=== PATIENT | male | born 1955 | race Caucasian/White ===

== ENCOUNTER → 2022-06-27 13:47 | Outpatient (BNVA) | payer MEDICARE, SELFPAY | PROVIDERS: PCP Nurse Practitioner Family; Visit Provider Internal Medicine Cardiovascular Disease | DX: I11.0 Hypertensive heart disease with heart failure (principal); I50.9 Heart failure, unspecified; I25.10 Atherosclerotic heart disease of native coronary artery without angina pectoris; E78.5 Hyperlipidemia, unspecified; F17.200 Nicotine dependence, unspecified, uncomplicated | CPT/HCPCS: 99214 ==

== ENCOUNTER → 2023-01-28 13:24 | Outpatient (BNVA) | payer MEDICARE, SELFPAY | PROVIDERS: PCP Nurse Practitioner Family; Visit Provider Nurse Practitioner Family | DX: I11.0 Hypertensive heart disease with heart failure (principal); I50.9 Heart failure, unspecified; I25.10 Atherosclerotic heart disease of native coronary artery without angina pectoris; F17.200 Nicotine dependence, unspecified, uncomplicated | CPT/HCPCS: 99214 ==

== ENCOUNTER 2023-05-11 14:32 | Emergency (ER) | payer MEDICARE, SELFPAY ==
[2023-05-11 14:44] VITALS: BP 155/87; PULSE 69; RESP 18; O2SAT 98
[2023-05-11] MEDS: dexamethasone 10 mg/mL INJ IVP (15:05)
[2023-05-11] MEDS: diphenhydrAMINE 50 mg/mL SDV 1mL IVP (15:05)
[2023-05-11] MEDS: famotidine 20 mg/2 mL INJ 40 MG IVP (15:05)
--- NOTE | 2023-05-11 15:06 | ED_ITS ---
HPI - General Adult General: Chief complaint: Airway/Esophagus Foreign Body Stated complaint: swollen tongue, Sob Time Seen by Provider: 05/11/23 14:47 History of Present Illness: Patient notices right tongue and right side of his neck swelling today started started about noon is getting worse. Patient is having a hard time talking.. It hurts to swallow. Patient's airway is patent with no difficulty breathing. He has never had this happen before. Patient is currently on lisinopril hydrochlorothiazide but has been on it for a long time. Relieving factors: none Exacerbating factors: none Review of Systems General: Reports: 10 or more systems reviewed and unremarkable except in HPI and below PFSH ED PFSH: Medical History ASHD (arteriosclerotic heart disease) CHF (congestive heart failure), NYHA class III GERD (gastroesophageal reflux disease) HTN (hypertension) Hyperlipidemia Surgical History S/P cholecystectomy S/P PTCA (percutaneous transluminal coronary angioplasty) S/P routine circumcision Social History Smoking and tobacco status: current every day smoker Physical Exam Const: COMMON NORMALS: no acute distress, average body habitus, patient oriented x3, no limitations, healthy appearing, alert and well nourished HENMT: COMMON NORMALS: normocephalic, atraumatic, hearing grossly normal bilaterally, external ears normal, Normal external nose present and moist oral mucous membranes HEAD & SCALP: normocephalic and atraumatic NOSE: Normal external nose present EXTERNAL EAR: Yes external ears normal OTHER: Right-sided tongue obviously swollen. Eye: COMMON NORMALS: Equal, round and reactive pupils present, EOMs intact bilaterally, conjunctivae normal and no scleral icterus CONJUNCTIVA: Yes conjunctivae normal PUPIL: Yes Equal, round and reactive pupils present Neck/C-Spine: COMMON NORMALS: no JVD OTHER: Right side of neck swollen up in the submandibular area tender to palpate. Left-sided neck normal. Lymph: LYMPHATIC: no lymphadenopathy noted Chest: COMMONS NORMALS: normal inspection of the chest and normal palpation of entire chest wall Resp: COMMON NORMALS: normal respiratory effort, No retractions and No use of accessory muscles Cardio: COMMON NORMALS: no JVD, regular rate, regular rhythm, S1 normal heart sound present, S2 normal heart sound present, No gallops present (Cardio), No clicks present (Cardio), No murmurs present (Cardio) and No rub (Cardio) RATE: regular rate RHYTHM: regular rhythm HEART SOUNDS: S1 normal heart sound present and S2 normal heart sound present GI: COMMON NORMALS: Normal to inspection, nondistended, normoactive bowel sounds present, Soft to palpation, non-tender, No hepatosplenomegaly present and no masses PALPATION: Yes Soft to palpation and Yes No hepatosplenomegaly present : COMMON NORMALS: Yes no CVA tenderness BLADDER/KIDNEY EXAM: Yes no CVA tenderness Back/Pelvis: COMMON NORMALS: no CVA tenderness Neuro: COMMON NORMALS: patient oriented x3 SENSORIUM/ORIENTATION: Yes alert Course Vital Signs: Vital signs: Vital Signs Pulse Rate 77 05/11/23 16:14 Respiratory Rate 21 H 05/11/23 16:14 Blood Pressure 139/83 05/11/23 16:14 Pulse Oximetry 96 05/11/23 16:14 Oxygen Delivery Me thod Room Air 05/11/23 16:14 MDM - General Adult Medical Decision Making Patient presents to the ER with right-sided tongue swelling and right-sided neck swelling. Patient was exposed to no known allergens. Patient states this happens couple times a year usually in the lips but never in the tongue. Patient was given a combination of Pepcid Benadryl and Decadron which did not seem to help patient was then given a dose of epinephrine which did seem to help. Patient was kept here for about another hour and a Improving. Patient feels comfortable and getting discharged home. Patient is to follow-up with his PCP in approximately 1 week as needed. Differential Diagnosis Angioedema, allergic reaction, anaphylaxis, Medical Records I reviewed the patient's medical records. Lab Data I reviewed the patient's lab results. Discharge Plan Discharge Patient Disposition: Home Clinical Impression: Tongue swelling Condition: Stable Prescriptions: No Action aspirin [Adult Low Dose Aspirin] 81 mg tablet,delayed release (DR/EC) 81 mg PO DAILY famotidine 20 mg tablet 20 mg PO DAILY carvedilol 12.5 mg tablet 12.5 mg PO BID Qty: 180 3RF amlodipine 5 mg tablet 5 mg PO DAILY Qty: 90 3RF lisinopril-hydrochlorothiazide 20-25 mg tablet 1 tab PO BID Qty: 180 1RF sildenafil 50 mg Tablet 50 mg PO DAILY PRN (Reason: Erectile Dysfunction) Rx Instructions: administer 30 minutes to 4 hours before activity pravastatin 10 mg tablet 10 mg PO DAILY Discharge Orders: Discharge ED (Routine); Ordered 05/11/23 Ordered By: Isaiah Machado Referrals: Estee Elizabeth FNP [Primary Care Provider] - 1 week Patient Instructions: Allergic Reaction Activity Restrictions/Additional Instructions: Please follow-up with your PCP in the next 7 to 10 days as further evaluation and treatment may be necessary. You may benefit from a referral from an help desk administrator. Please return to the ER if your signs or symptoms worsen. Coding Level of Care Code ED Mechanical Engineering Professor for César Dunn
--- NOTE | 2023-05-11 15:12 | PC.NURSE ---
Pt is able to talk, swallow, and breathe but has obvious swelling throughout his mouth, tongue, and throat. Pt given medications and instructed to call out to nurse with light if swelling gets worse. Pt on vitals monitoring.
--- NOTE | 2023-05-11 16:00 | PC.NURSE ---
pt is at CT at this time
[2023-05-11] MEDS: EPINEPHrine 1 mg/mL INJ 0.3 MG IM (16:04)
[2023-05-11 16:14] VITALS: BP 139/83; PULSE 77; RESP 21; O2SAT 96
[2023-05-11 17:00] VITALS: BP 161/76; PULSE 77; RESP 18; O2SAT 96
== END 2023-05-11 17:01 | disposition home or self-care (01) ==
PROVIDERS: Emergency Provider Emergency Medicine; PCP Nurse Practitioner Family
DX: K14.8 Other diseases of tongue (principal)
CPT/HCPCS: 96372; 96374; 96375; 99284; J0171; J1100; J1200; J3490

== ENCOUNTER → 2023-07-29 15:29 | Outpatient (BNVA) | payer MEDICARE, SELFPAY | PROVIDERS: PCP Nurse Practitioner Family; Visit Provider Internal Medicine Cardiovascular Disease | DX: I25.10 Atherosclerotic heart disease of native coronary artery without angina pectoris (principal); E78.5 Hyperlipidemia, unspecified; F17.200 Nicotine dependence, unspecified, uncomplicated; I45.10 Unspecified right bundle-branch block; I11.0 Hypertensive heart disease with heart failure; I50.9 Heart failure, unspecified | CPT/HCPCS: 93005; 99214 ==

== ENCOUNTER 2023-08-16 10:11 | Outpatient (CLI) | payer MEDICARE, SELFPAY ==
--- NOTE | 2023-08-16 10:15 | USCV_ITS ---
Marcin Monsivais Age: 67 Gender: M : 1955 Exam Date: 08/16/2023 10:51 Ordering Phys: Jessica Prado MD ([email or web address]) Technologist: CT Exam Location: [facility] – [place] Indication: Coronary artery disease BP: 114 / 84 HR: 62 Rhythm: Sinus Technical Quality: Adequate MEASUREMENTS (Male / Female) Normal Values 2D ECHO LV Chamber Size 5.4 cm RV Chamber Size 4.2 cm LVOT Diameter 2.3 cm LV Ejection Fraction MOD 2C 33.8 % LV Ejection Fraction 2C AL 37.3 % LA Diameter 4.2 cm LA Width 4.5 cm LA Height 5.1 cm RA Width 3.8 cm RA Height 4.8 cm Aorta at Sinotubular Diameter 2.9 cm IVC Diameter 1.5 cm M-MODE Aortic Annulus Diameter 3.5 cm LA Ao Ratio MM 1.3 MV E Point Septal Separation 1.1 cm DOPPLER AV Peak Velocity 127.0 cm/s LVOT Peak Velocity 108.0 cm/s AV Area Cont Eq vti 4.2 cm squared AV Area Cont Eq pk 3.6 cm squared MV Peak Velocity 93.0 cm/s MV Area PHT 3.1 cm squared Mitral E to A Ratio 0.5 MV E' Velocity 31.0 cm/s Mitral E to MV E' Ratio 12.4 Mitral E to LV E' Lateral Ratio 11.9 Mitral E to LV E' Septal Ratio 13.0 TR Peak Velocity 120.0 cm/s TR Peak Gradient 5.8 mmHg TV Peak E Velocity 61.0 cm/s Right Atrial Pressure 3.0 mmHg Pulmonary Artery Systolic Pressu 8.8 mmHg PV Peak Velocity 87.0 cm/s FINDINGS Left Ventricle Normal left ventricular size and increased wall thickness. Mildly decreased left ventricular systolic function. Left ventricular ejection fraction is estimated at 45-50 %. There is moderate hypokinesis of mid anterolateral, mid inferolateral, basal to mid anterior, apical anterior and apical lateral luther. Grade I diastolic dysfunction (abnormal relaxation filling pattern), normal to mildly elevated filling pressures. Right Ventricle Normal right ventricular size and systolic function. Right ventricular systolic pressure 8.8 mmHg. Right Atrium Normal right atrial size. Left Atrium Normal left atrial size. Mitral Valve Structurally normal mitral valve. No mitral valve stenosis. Trace mitral valve regurgitation. Aortic Valve Structurally normal trileaflet aortic valve. No aortic valve stenosis. No aortic valve regurgitation. Tricuspid Valve Structurally normal tricuspid valve. No tricuspid valve stenosis. Trace to mild tricuspid valve regurgitation. Pulmonic Valve Structurally normal pulmonic valve. No pulmonary valve stenosis. Trace pulmonary valve regurgitation. Pericardium No pericardial effusion. Aorta Normal size aortic root and proximal ascending aorta. IVC Normal IVC dimension with >50% respiratory change of the inferior vena cava. CONCLUSIONS 1. Normal left ventricular size. Mildly decreased left ventricular systolic function. Left ventricular ejection fraction is estimated at 45-50 %. There is moderate hypokinesis of mid anterolateral, mid inferolateral, basal to mid anterior, apical anterior and apical lateral luther. Grade I diastolic dysfunction (abnormal relaxation filling pattern), normal to mildly elevated filling pressures. 2. No change when compared to study dated 01/03/2016. Jessica Prado MD (Electronically Signed) Final Date: 29 August 2023 16:46 S
== END 2023-08-16 10:12 | disposition home or self-care (01) ==
PROVIDERS: PCP Family Medicine; Visit Provider Internal Medicine Cardiovascular Disease
DX: I25.10 Atherosclerotic heart disease of native coronary artery without angina pectoris (principal); I50.30 Unspecified diastolic (congestive) heart failure
CPT/HCPCS: 93306

== ENCOUNTER → 2024-04-13 14:02 | Outpatient (BNVA) | payer MEDICARE, SELFPAY | PROVIDERS: PCP Family Medicine; Visit Provider Internal Medicine Cardiovascular Disease | DX: I25.10 Atherosclerotic heart disease of native coronary artery without angina pectoris (principal); E78.2 Mixed hyperlipidemia; I11.0 Hypertensive heart disease with heart failure; I50.20 Unspecified systolic (congestive) heart failure; F17.200 Nicotine dependence, unspecified, uncomplicated | CPT/HCPCS: 99214 ==

== ENCOUNTER → 2024-05-07 09:37 | Outpatient (BNVA) | payer MEDICARE, SELFPAY | PROVIDERS: PCP Family Medicine; Visit Provider Nurse Practitioner Family | DX: L72.0 Epidermal cyst (principal); L81.4 Other melanin hyperpigmentation; L24.9 Irritant contact dermatitis, unspecified cause | CPT/HCPCS: 99203 ==

== ENCOUNTER → 2024-06-10 09:45 | Outpatient (BNVA) | payer MEDICARE, SELFPAY | PROVIDERS: PCP Family Medicine; Visit Provider Dermatology | DX: L72.0 Epidermal cyst (principal); D48.5 Neoplasm of uncertain behavior of skin | CPT/HCPCS: 11402; 11442; 12034; 12052 ==

== ENCOUNTER → 2024-08-19 07:57 | Outpatient (BNVA) | payer MEDICARE, SELFPAY | PROVIDERS: PCP Family Medicine; Visit Provider Dermatology | DX: D48.5 Neoplasm of uncertain behavior of skin (principal); L53.8 Other specified erythematous conditions; L29.8 Other pruritus | CPT/HCPCS: 11104; 11402; 12032 ==

== ENCOUNTER 2024-09-17 09:44 | Outpatient (CLI) | payer MEDICARE, SELFPAY ==
--- NOTE | 2024-09-17 10:06 | CT_ITS ---
WS: [id number] LDCT LUNG CANCER SCREENING HISTORY: NICOTINE DEPENDENCE TECHNIQUE: Axial imaging performed from the apices to 1 cm below the costophrenic angles. Coronal and sagittal reformats are submitted with axial MIP series. All CT scans at [facility] use at least one of these dose optimization techniques: automated exposure control; mA and/or kV adjustment per patient size (includes targeted exams where dose is matched to clinical indication); or iterativ e reconstruction. DLP: 69.41 mGy.cm DIvol: Mean CTDIvol: 1.50 (mGy) COMPARISON: None available. Diagnostic quality: Satisfactory Lungs: Hyperinflated lungs. Scattered groundglass attenuation and mosaic attenuation. Subpleural cyst ic changes are noted in the upper and lower lung chahal. Scattered areas of hazy attenuation and grou ndglass attenuation. There are a few scattered granulomata. Dependent changes posteriorly at the lung bases. No mass. Heart: Normal size heart with no pericardial effusion.. Other findings: Small mediastinal lymph nodes. Hilar lymph nodes would be difficult to exclude. Mild atherosclerosis aorta. Normal size pulmonary artery. Prior cholecystectomy. Negative adrenal glands. CT/CT lung screening [id number] IMPRESSION: LUNG-RADS: 2-Benign Appearance or Behavior FOLLOW UP: 12 Month: Continue annual screening with LDCT OTHER FINDINGS (S MODIFIER): None.
== END 2024-09-17 09:45 | disposition home or self-care (01) ==
PROVIDERS: PCP Family Medicine; Visit Provider Family Medicine
DX: Z12.2 Encounter for screening for malignant neoplasm of respiratory organs (principal); F17.210 Nicotine dependence, cigarettes, uncomplicated; R91.8 Other nonspecific abnormal finding of lung field; Z90.49 Acquired absence of other specified parts of digestive tract
CPT/HCPCS: 71271

== ENCOUNTER 2024-09-24 06:00 | Outpatient (CLI) | payer MEDICARE, SELFPAY ==
--- NOTE | 2024-09-24 06:14 | USCV_ITS ---
Loi Marcin Age: 69 Gender: M : 1955 Exam Date: 09/24/2024 06:19 Ordering Phys: Morteza Farah MD Technologist: PATRICK [place] [facility] [place] HISTORY: Diameter (cm) AP x Transverse x Length Velocity (cm/s) Waveform Prox Aorta: 2.10 x 2.50 x 33.50 Triphasic Mid Aorta: 1.40 x 1.30 x 38.60 Triphasic Distal Aorta: 1.30 x 1.70 x 42.00 Triphasic Right Iliac Prox: 0.78 x 0.82 x 80.20 Triphasic Left Iliac Prox: 0.97 x 1.00 x 58.40 Triphasic Stent Prox Landing x x Aneurysmal Sac Max x x Lt Lat Sac Dim Rt Lat Sac Dim Stent Dist Landing x x Right Iliac Stent x x Left Iliac Stent x x Right Renal Art Left Renal Art FINDINGS: wnl CONCLUSIONS No evidence of abdominal aortic or bilateral iliac aneurysm. Moderate aortic atheromatous disease Justin Neumann MD (Electronically Signed) Final Date: 24 September 2024 12:35 S
== END 2024-09-24 06:01 | disposition home or self-care (01) ==
PROVIDERS: PCP Family Medicine; Visit Provider Family Medicine
DX: Z13.6 Encounter for screening for cardiovascular disorders (principal); I70.0 Atherosclerosis of aorta
CPT/HCPCS: 76706

== ENCOUNTER → 2024-11-30 12:47 | Outpatient (BNVA) | payer MEDICARE, SELFPAY | PROVIDERS: PCP Family Medicine; Visit Provider Nurse Practitioner Family | DX: L72.0 Epidermal cyst (principal); L81.4 Other melanin hyperpigmentation; L57.0 Actinic keratosis | CPT/HCPCS: 17000; 99213 ==

== ENCOUNTER → 2025-07-23 08:49 | Outpatient (BNVA) | payer MEDICARE, SELFPAY | PROVIDERS: PCP Family Medicine; Visit Provider Dermatology | DX: L81.7 Pigmented purpuric dermatosis (principal); L90.8 Other atrophic disorders of skin; D48.5 Neoplasm of uncertain behavior of skin; L57.0 Actinic keratosis | CPT/HCPCS: 11104; 11105; 17000; 99213 ==